=== PATIENT | male | born 1945 | race Hispanic/Latino ===

== ENCOUNTER 2017-02-06 06:04 | Day surgery (SDC) | payer MEDICARE ==
[2017-02-06] MEDS ORDERED: ECOTRIN PO ONE ×2 (06:23→06:30)
[2017-02-06] MEDS ORDERED: NACL 0.9% 500 ML 500 ML ONE (06:31)
[2017-02-06 06:50] LABS: Basophils % (Auto) 0.8 % (0.0-1.8); Eosinophils % (Auto) 3.5 % (0.0-4.3); Hematocrit 42.7 % (35.5-45.6); Hemoglobin 14.5 gm/dl (11.8-15.2); Mean Corpuscular HGB Conc 34 % (32-34); Mean Corpuscular Hemoglobin 30 pg (28-32); Mean Corpuscular Volume 88 fl (84-94); Platelet Count 201 K/mm3 (140-440); Red Blood Count 4.87 M/mm3 (3.65-5.03); Red Cell Distribution Width 13.3 % (13.2-15.2)
[2017-02-06 07:00] LABS: INR 0.98 (0.87-1.13)
[2017-02-06] MEDS ORDERED: NACL 0.9% 500 ML 500 ML IV SCH (07:00)
[2017-02-06 07:06] LABS: BUN/Creatinine Ratio 17.77; Blood Urea Nitrogen 16 mg/dL (9-20); Calcium 8.7 mg/dL (8.4-10.2); Carbon Dioxide 26 mmol/L (22-30); Glucose 145 mg/dL (75-100); Sodium 142 mmol/L (137-145)
[2017-02-06 07:46] LABS: Anion Gap 15 mmol/L; Potassium 4.3 mmol/L (3.6-5.0)
[2017-02-06] MEDS ORDERED: HEPARIN 10,000 UNITS/10 ML ONE (08:38)
[2017-02-06] MEDS ORDERED: HEPARIN/NS 5000 UNIT/500ML(CATH LAB) 1,000 ML IR ONE (08:38)
[2017-02-06] MEDS ORDERED: XYLOCAINE 2% INFILTRATI ONE (08:38)
[2017-02-06] MEDS ORDERED: CALAN ONE (08:38)
[2017-02-06] MEDS ORDERED: NITROGLYCERIN SYRINGE 3 ML ONE (08:39)
[2017-02-06] MEDS ORDERED: BENADRYL ONE (08:44)
[2017-02-06] MEDS ORDERED: BENADRYL IV ONE (09:00)
[2017-02-06] MEDS ORDERED: VERSED ONE (09:01)
[2017-02-06] MEDS ORDERED: SUBLIMAZE ONE (09:02)
--- NOTE | 2017-02-06 09:37 | Short Stay Summary ---
Short Stay Documentation Date of service: 02/06/17 - History H&P: obtained from office - Allergies and Medications Current Medications: Allergies IV DYE Allergy (Uncoded 01/04/15 06:00) Itching Home Medications Medication Instructions Recorded Confirmed Last Taken Type Lisinopril [Zestril] 20 mg PO QDAY 02/06/17 02/06/17 02/05/17 History Active Medications Sodium Chloride (Nacl 0.9% 500 Ml) 500 mls @ 50 mls/hr IV DIRECT ROLANDO Stop: 02/06/17 16:59 Last Admin: 02/06/17 07:28 Dose: 50 mls/hr Methylprednisolone Sodium Succinate (Solu-Medrol) 125 mg IV PREOP NR Stop: 02/06/17 12:00 Last Admin: 02/06/17 08:42 Dose: 125 mg - Physical exam General appearance: no acute distress Integumentary: no rash HEENT: Atraumatic Lungs: Clear to auscultation Breasts: deferred Heart: Regular rate Gastrointestinal: normoactive bowel sounds Male Genitourinary: deferred Female Genitourinary: deferred Rectal Exam: deferred Extremities: no ischemia Neurological: Normal gait - Brief post op/procedure progress note Date of procedure: 02/06/17 Pre-op diagnosis: SOB, abnormal stress test Post-op diagnosis: same Procedure: LHC, LV gram Anesthesia: MAC Findings: See report Surgeon: FRANCISCO J TAYLOR Estimated blood loss: none Pathology: none Condition: stable - Hospital course Hospital course: Uneventful - Disposition Condition at discharge: Good Disposition: DC-01 TO HOME OR SELFCARE Short Stay Discharge Plan Activity: advance as tolerated Weight Bearing Status: Weight Bear as Tolerated Diet: low fat, low cholesterol, low salt Wound: keep clean and dry Follow up with: BETHANY RAMOS JR, MD [Primary Care Provider] - 7 Days
--- NOTE | 2017-02-06 09:52 | Cardiac Catherization Report ---
LEFT HEART CATHETERIZATION ORDERING PHYSICIAN: Qamar Solares MD INDICATION: Shortness of breath, intermediate risk myocardial perfusion imaging scan. PROCEDURES PERFORMED: 1. Selective left and right coronary angiography. 2. Left ventriculography. DESCRIPTION OF PROCEDURE: After obtaining written consent, the patient was draped using sterile technique. A 2% lidocaine was injected into the right wrist. A 5-Czech vascular sheath was inserted into the right radial artery. A 5-Czech JL3.5 catheter was used to selectively engage the left coronary artery. A 5-Czech JR4 catheter was used to selectively engage the right coronary artery. A 5-Czech JR4 catheter was used to perform a left ventriculogram. No complications occurred during the procedure. Hemostasis was achieved at the end of the procedure using manual pressure. SPECIMEN REMOVED: None. ESTIMATED BLOOD LOSS: Minimal. SEDATION ADMINISTERED: 1 mg of Versed and 50 mcg of IV fentanyl. FINDINGS: HEMODYNAMICS: Aortic pressure 157/72, LV end diastolic pressure 23 mmHg and LV systolic pressure 157 mmHg. No gradient across left ventricular outflow tract. CARDIAC STRUCTURES: The left ventricle is normal in size and systolic function and left ventricular ejection fraction is estimated at 60%. No wall motion abnormality detected. CORONARY ANATOMY: 1. This is a right dominant circulation. 2. The left main is angiographically normal. 3. The LAD has mild diffuse 10% luminal irregularities. There is evidence of a 10%, also luminal irregularities noted in the large first diagonal artery. 4. The left circumflex artery has mild 10% diffuse luminal irregularities. 5. The right coronary artery has mild 10% diffuse luminal irregularities. There is evidence of a 20% focal stenosis noted in the proximal segment of the posterolateral ventricular branch. IMPRESSION: 1. Nonobstructive coronary artery disease. 2. Normal left ventricular size and systolic function. 3. LVEDP measured at 23 mmHg. RECOMMENDATIONS: Continue medical therapy and risk factor modification. JOB# [id number] LUIS FELIPE/FANNIE
[2017-02-06 11:47] VITALS: BP 128/72
== END 2017-02-06 11:40 | disposition home or self-care (01) ==
LOC: CATHLABREC 06:04
PROVIDERS: ATTEND Internal Medicine
DX: I25.10 Atherosclerotic heart disease of native coronary artery without angina pectoris (principal); Z79.82 Long term (current) use of aspirin
CPT/HCPCS: 36415; 80048; 84132; 85025; 85610; 85730; 93005; 93010; 93458; 96374; 96375; C1894; J1200; J1644; J2250; J2930; J3010; J7040; Q9967

== ENCOUNTER 2019-06-28 09:05 | Outpatient (CLI) | payer MEDICARE ==
--- NOTE | 2019-06-28 12:11 | Ultrasound Report ---
BILATERAL DIGITAL DIAGNOSTIC MAMMOGRAM WITH CAD 06/28/2019 RIGHT LIMITED BREAST ULTRASOUND INDICATION: 74-year-old male with intermittent pain at the right nipple. TECHNIQUE: Digital bilateral mammographic imaging was performed. This examination was interpreted wi th the benefit of Computer-Aided Detection (CAD) analysis. COMPARISON: None. FINDINGS: Breast Density: The breasts are almost entirely fatty. MAMMOGRAPHIC FINDINGS: There is no evidence of dominant mass, suspicious calcifications or architectu ral distortion in either breast. ULTRASOUND FINDINGS: Targeted ultrasound evaluation was performed of the area of interest. Ultrasou nd of the retroareolar area demonstrated an irregular solid heterogeneous hypoechoic subareolar mass measuring approximately 5 x 4 x 6 mm. No other abnormal finding. IMPRESSION: A 6 mm solid right subareolar mass. Recommend ultrasound-guided needle biopsy to exclude malignancy. I discussed the findings and the recommendation for ultrasound-guided needle biopsy with the patient at the time of the exam. Follow up recommendation: Biopsy BI-RADS Category 4: Suspicious for Malignancy. A "normal" or negative report should not discourage follow up or biopsy of a clinically significant f inding. A written summary of these findings will be mailed to the patient. The patient will be entered into a mammography reporting system which will generate a reminder letter for the patient's next appointmen t at the appropriate interval. According to the [employer], yearly mammograms are recommended starting at age 40 and continuing as long as a woman is in good health. Breast MRI is recommended for women with an dominic roximately 20-25% or greater lifetime risk of breast cancer, including women with a strong family his tory of breast or ovarian cancer and women who have been treated for Hodgkin's disease. Signer Name: Steven Rubio MD Signed: 06/28/2019 12:06 PM Workstation Name: [id number]
== END 2019-06-28 09:06 | disposition home or self-care (01) ==
LOC: US 09:05
PROVIDERS: ATTEND Family Medicine
DX: N63.41 Unspecified lump in right breast, subareolar (principal)
CPT/HCPCS: 77066

== ENCOUNTER 2019-07-14 12:38 | Outpatient (CLI) | payer MEDICARE ==
--- NOTE | 2019-07-14 15:04 | Ultrasound Report ---
ULTRASOUND-GUIDED RIGHT BREAST BIOPSY WITH MARKER HISTORY: Right breast mass. CONSENT: Technique, risks and alternatives were discussed with the patient and informed written conse nt obtained. PROCEDURE: Informed consent was obtained. The lesion in the right subareolar breast was identified with ultrasou nd. The overlying skin was cleansed with chloro prep and local anesthesia was obtained with a 1% lido isaak solution. A 12-gauge vacuum-assisted needle was advanced to the lesion and a total of 4 samples were obtained. A U-shaped biopsy marker was placed at the lesion. A post procedure mammogram was not obtained, however the biopsy marker appears appropriate position u nder ultrasound. No immediate complications were identified. Manual pressure was applied at the biops y site to achieve hemostasis. The incision margins were approximated with Steri-Strips. Post procedure care instructions were administered in both verbal and written forms. The patient voic ed understanding and left the breast center in stable, satisfactory condition. IMPRESSION: Technically successful ultrasound-guided biopsy with placement of a U shaped biopsy marker. Patient is scheduled follow up biopsy results with the ordering clinician. Signer Name: Beka Estrada MD Signed: 07/14/2019 3:00 PM Workstation Name: [id number]
== END 2019-07-14 12:39 | disposition home or self-care (01) ==
LOC: SPVWC 12:38
PROVIDERS: ATTEND Family Medicine
DX: N63.10 Unspecified lump in the right breast, unspecified quadrant (principal); R92.8 Other abnormal and inconclusive findings on diagnostic imaging of breast; I10 Essential (primary) hypertension; G47.30 Sleep apnea, unspecified; K21.9 Gastro-esophageal reflux disease without esophagitis; E16.1 Other hypoglycemia; Z85.89 Personal history of malignant neoplasm of other organs and systems; Z98.890 Other specified postprocedural states; Z87.891 Personal history of nicotine dependence; Z79.899 Other long term (current) drug therapy; Z87.442 Personal history of urinary calculi
CPT/HCPCS: 88305

== ENCOUNTER 2020-04-19 10:31 | Outpatient (CLI) | payer MEDICARE ==
--- NOTE | 2020-04-19 13:29 | Cat Scan Report ---
CT ABDOMEN PELVIS WITHOUT CONTRAST INDICATION / CLINICAL INFORMATION: HEMATURIA. TECHNIQUE: Axial CT images were obtained through the abdomen and pelvis without IV contrast. All CT scans at [facility] are performed using CT dose reduction for ALARA by means of automated exposure control. COMPARISON: None available. FINDINGS: LOWER CHEST: No significant abnormality. LIVER: 3.3 cm cyst caudate lobe of the liver GALLBLADDER: No significant abnormality. BILE DUCTS: No significant abnormality. PANCREAS: No significant abnormality. SPLEEN: No significant abnormality. ADRENALS: No significant abnormality. RIGHT KIDNEY and URETER: Multiple right renal calculi largest measuring 1 cm in diameter. No evidence of hydronephrosis LEFT KIDNEY and URETER: No significant abnormality. STOMACH and SMALL BOWEL: No significant abnormality. COLON: Extensive diverticulosis involving the descending colon and sigmoid colon APPENDIX: No significant abnormality. PERITONEUM: No free fluid. No free air. No fluid collection. LYMPH NODES: No significant adenopathy. AORTA and ARTERIES: Calcified atherosclerotic plaque abdominal aorta IVC and VEINS: No significant abnormality. URINARY BLADDER: No significant abnormality. REPRODUCTIVE ORGANS: Dense calcifications within the prostate gland ADDITIONAL FINDINGS: None. SKELETAL SYSTEM: Schmorl nodes lumbar spine IMPRESSION: 1. Multiple right renal calculi 2. Extensive diverticulosis descending colon and sigmoid colon 3. Hepatic cyst Signer Name: Oleg Payton MD Signed: 04/19/2020 1:25 PM Workstation Name: [id number]
== END 2020-04-19 10:32 | disposition home or self-care (01) ==
LOC: CT 10:31
PROVIDERS: ATTEND Urology
DX: N20.0 Calculus of kidney (principal); N42.89 Other specified disorders of prostate; K57.30 Diverticulosis of large intestine without perforation or abscess without bleeding; M51.46 Schmorl's nodes, lumbar region; R31.9 Hematuria, unspecified
CPT/HCPCS: 74176